=== PATIENT | male | born 1970 | race Caucasian/White ===

== ENCOUNTER → 2021-07-13 | Outpatient (CLI) | payer OTHER ==
--- NOTE | 2021-07-13 17:46 | REP ---
INDICATION: LOWER BACK PAIN. COMPARISON: 03/14/2012 TECHNIQUE: Five views of the lumbar spine were obtained which include flexion and extension lateral views. FINDINGS: The lumbar vertebra appear well maintained in height though disc space narrowing is present at L4/5 and L5/S1. Thiis was present on the prior examination as well. There is significant facet joint arthropathy bilaterally at L2/3, L3/4, L4/and L5/S1 which was not present on the prior examination. Flexion-extension views show no forward or reverse slippage. The SI joints appear patent. IMPRESSION: Interval development of significant facet joint arthropathy from L2/3 to L5/S1. <Electronically signed by Micheal Mary > 07/13/21 [id number]
== END ==
LOC: M RAD 16:53
PROVIDERS: ATTEND Nurse Practitioner Primary Care
DX: M51.87 Other intervertebral disc disorders, lumbosacral region (principal); M54.50 Low back pain, unspecified